=== PATIENT | female | born 1950 | race Caucasian/White ===

== ENCOUNTER 2019-03-03 15:43 | Emergency (ER) | payer MEDICARE, BC ==
[2019-03-03 15:56] VITALS: BP 146/72
--- NOTE | 2019-03-03 16:43 | EDM.PDOC ---
ED HPI GENERAL MEDICAL PROBLEM - General Chief Complaint: Lower Extremity Injury/Pain Stated Complaint: FELL-INJURED LEFT LEG Time Seen by Provider: 03/03/19 16:20 Source of Information: Reports: Patient History Limitations: Reports: No Limitations - History of Present Illness INITIAL COMMENTS - FREE TEXT/NARRATIVE: This 69 yo female patient reports to the ED with left knee through left foot pain. The patient reports she tripped over a cord at about 2:30 or 3:00 this morning. The patient reports she has continued to have pain since the time of injury. The patient reports she did not hit her head. The patient reports no dizziness before, during or after the incident. Onset Date: 03/03/19 Onset Time: 03:00 Duration: Constant Location: Reports: Lower Extremity, Left Quality: Reports: Ache, Dull Severity: Moderate Improves with: Reports: Rest Worsens with: Reports: Movement Context: Reports: Trauma (ground level fall) Associated Symptoms: Reports: No Other Symptoms Left Ankle Pain Score (Numeric/FACES): 5 - Related Data Allergies Allergy/AdvReac Type Severity Reaction Status Date / Time Penicillins Allergy Rash Verified 03/03/19 16:04 Sulfa (Sulfonamide Allergy Rash Verified 03/03/19 16:04 Antibiotics) environmental Allergy Swollen Uncoded 03/03/19 16:04 Eyes Home Meds: Home Meds Adek 3 tab PO DAILY 05/19/14 [History] Marlene 1 tab PO DAILY 05/19/14 [History] Biotin 5,000 mcg PO DAILY 05/19/14 [History] Cholecalciferol (Vitamin D3) [Vitamin D3] 5,000 unit PO DAILY 05/19/14 [History] Cyanocobalamin/Folic Acid [B-12 1,000 Mcg Sub Tablet] 1,000 mcg SL DAILY [History] Docosahexanoic Acid [DHA] 100 mg PO DAILY 05/19/14 [History] Flintstones 2 tab PO DAILY 05/19/14 [History] Multivit-Min/Iron/Folic/Ojy346 [Hair, Skin and Nails Caplet] 1 tab PO DAILY [History] buPROPion HCl [Wellbutrin Xl] 300 mg PO DAILY 05/19/14 [History] Gabapentin [Neurontin] 300 mg PO TID 30 Days cap 05/21/14 [Rx] Losartan [Cozaar] 50 mg PO DAILY #15 tablet 05/21/14 [Rx] Insulin Aspart [NovoLOG] 2 unit SQ ASDIRECTED 03/03/19 [History] Insulin Glarg,Human.Rec.Analog [Lantus] 30 unit SQ BEDTIME 03/03/19 [History] Magnesium Chloride [Mag-64] 64 mg PO DAILY 03/03/19 [History] oxyCODONE HCl/Acetaminophen [Oxycodone-Acetaminophen 5-325] 1 each PO QID [History] Past Medical History HEENT History: Reports: Impaired Vision Cardiovascular History: Reports: Hypertension Respiratory History: Reports: None Genitourinary History: Reports: UTI, Recurrent [employer] History: Reports: Musculoskeletal History: Reports: Back Pain, Chronic, Neck Pain, Chronic Neurological History: Reports: Neuropathy, Diabetic, Neuropathy, Peripheral Psychiatric History: Reports: Anxiety, Depression Endocrine/Metabolic History: Reports: Diabetes, Type II Hematologic History: Reports: None Immunologic History: Reports: None Oncologic (Cancer) History: Reports: None Dermatologic History: Reports: None - Infectious Disease History Infectious Disease History: Reports: None - Past Surgical History Head Surgeries/Procedures: Reports: None HEENT Surgical History: Reports: Tonsillectomy GI Surgical History: Reports: Appendectomy, Bariatric Procedure, Cholecystectomy , Hernia, Inguinal, Other (See Below) Female Surgical History: Reports: Section, Hysterectomy Musculoskeletal Surgical History: Reports: Other (See Below) Other Musculoskeletal Surgeries/Procedures:: broken toe on left foot, broken finger Social & Family History - Family History Family Medical History: Noncontributory - Tobacco Use Smoking Status *Q: Never Smoker - Caffeine Use Caffeine Use: Reports: Coffee - Recreational Drug Use Recreational Drug Use: No Review of Systems - Review of Systems Review Of Systems: ROS reveals no pertinent complaints other than HPI. ED EXAM, GENERAL - Physical Exam Exam: See Below Exam Limited By: No Limitations General Appearance: Alert, WD/WN, Mild Distress Eye Exam: Bilateral Eye: EOMI, Normal Inspection, PERRL Ears: Normal External Exam, Normal Canal, Hearing Grossly Normal, Normal TMs Nose: Normal Inspection, Normal Mucosa, No Blood Throat/Mouth: Normal Inspection, Normal Lips, Normal Teeth, Normal Gums, Normal Oropharynx, Normal Voice, No Airway Compromise Head: Atraumatic, Normocephalic Neck: Normal Inspection, Supple, Non-Tender, Full Range of Motion Respiratory/Chest: No Respiratory Distress, Lungs Clear, Normal Breath Sounds, No Accessory Muscle Use, Chest Non-Tender Cardiovascular: Normal Peripheral Pulses, Regular Rate, Rhythm, No Edema, No Gallop, No JVD, No Murmur, No Rub GI/Abdominal: Normal Bowel Sounds, Soft, Non-Tender, No Organomegaly, No Distention, No Abnormal Bruit, No Mass (Female) Exam: Deferred Rectal (Female) Exam: Deferred Back Exam: Normal Inspection, Full Range of Motion, NT Extremities: Leg Pain (left knee, left lateral foot) Neurological: Alert, Oriented, CN II-XII Intact, Normal Cognition, Normal Gait, Normal Reflexes, No Motor/Sensory Deficits Psychiatric: Normal Affect, Normal Mood Skin Exam: Warm, Dry, Intact, Normal Color, No Rash Lymphatic: No Adenopathy Course - Vital Signs Last Recorded V/S: Last Vital Signs Temp 35.8 C 03/03/19 15:50 Pulse 104 H 03/03/19 15:50 Resp 20 03/03/19 15:50 BP 146/72 H 03/03/19 15:50 Pulse Ox 96 03/03/19 15:50 Departure - Departure Time of Disposition: 17:15 Disposition: Home, Self-Care 01 Condition: Fair Clinical Impression: Contusion of left foot Qualifiers: Encounter type: initial encounter Qualified Code(s): S90.32XA - Contusion of left foot, initial encounter Contusion of left knee Qualifiers: Encounter type: initial encounter Qualified Code(s): S80.02XA - Contusion of left knee, initial encounter Left ankle sprain Qualifiers: Encounter type: initial encounter Involved ligament of ankle: unspecified ligament Qualified Code(s): S93.402A - Sprain of unspecified ligament of left ankle, initial encounter - Discharge Information *PRESCRIPTION DRUG MONITORING PROGRAM REVIEWED*: Not Applicable *COPY OF PRESCRIPTION DRUG MONITORING REPORT IN PATIENT SUZANNE: Not Applicable Instructions: Ankle Sprain, [id number], Contusion, [id number] Forms: ED Department Discharge Care Plan Goals: The patient was advised of the examination and x-ray results during the visit. The patient was encouraged to rest, ice and elevate her left lower extremity. If the patient has any additional symptoms or concerns, the patient should either return to the emergency department or visit her primary care facility.
--- NOTE | 2019-03-03 17:05 | CR ---
Clinical history: 69-year-old female left foot pain associated with fall. Interpretation: Osteoporosis and chronic arthritic changes. Pes cavus, hammertoe deformities and large heel spurs at the insertion plantar aponeurosis/Achilles tendon on the os calcis. *No acute fracture or dislocation left foot. No foreign bodies.
--- NOTE | 2019-03-03 17:06 | CR ---
Clinical history: 69-year-old female complaining of pain from left knee to foot associated with fall. Interpretation: No sign of long bone tib/fib fracture or left knee/ankle joint dislocation. Chronic arthritic changes medial joint compartment knee. (Apparent bimalleolar soft tissue swelling ankle on margins of the film) No foreign bodies.
== END 2019-03-03 17:19 | disposition home or self-care (01) ==
LOC: DL.ED 15:43
DX: S93.402A Sprain of unspecified ligament of left ankle, initial encounter (principal); S90.32XA Contusion of left foot, initial encounter; S80.02XA Contusion of left knee, initial encounter; I10 Essential (primary) hypertension; F41.9 Anxiety disorder, unspecified; F32.9 Major depressive disorder, single episode, unspecified; E11.42 Type 2 diabetes mellitus with diabetic polyneuropathy; Z88.0 Allergy status to penicillin; Z79.4 Long term (current) use of insulin; Z88.2 Allergy status to sulfonamides; Z79.899 Other long term (current) drug therapy; W22.8XXA Striking against or struck by other objects, initial encounter
CPT/HCPCS: 73590-LT; 73630-LT; 99283-25

== ENCOUNTER 2022-05-21 11:00 | Emergency (ER) | payer MEDICARE, BC ==
[2022-05-21 11:43] VITALS: BP 135/74; PULSE 57
[2022-05-21] MEDS ORDERED: Lidocaine 5% Oint 35.44 GM Tube TOP ONE (13:18)
== END 2022-05-21 13:40 | disposition home or self-care (01) ==
LOC: DL.ED 11:00
DX: M79.672 Pain in left foot (principal); E11.42 Type 2 diabetes mellitus with diabetic polyneuropathy; Z88.0 Allergy status to penicillin; Z88.2 Allergy status to sulfonamides; Z91.09 Other allergy status, other than to drugs and biological substances; Z79.4 Long term (current) use of insulin
CPT/HCPCS: 73630-LT; 99283; 99284; A9270-GY

== ENCOUNTER 2023-07-08 17:49 | Emergency (ER) | payer MEDICARE, BC ==
[2023-07-08 18:00] VITALS: BP 126/71; PULSE 73
[2023-07-08] MEDS: Lidocaine 1% with EPINEPHrine 1:100,000 20 ML MDV INJECT ONE (18:09)
[2023-07-08] MEDS: Acetaminophen 500 MG Tab PO ONE (18:28)
[2023-07-08] MEDS: Acetaminophen 500 MG Tab ONE (18:29)
[2023-07-08] MEDS: Bacitracin Oint 1 GM U/D Packet TOP ONE (18:55)
== END 2023-07-08 19:05 | disposition home or self-care (01) ==
LOC: DL.ED 17:49
DX: S01.01XA Laceration without foreign body of scalp, initial encounter (principal); I10 Essential (primary) hypertension; E11.42 Type 2 diabetes mellitus with diabetic polyneuropathy; Z88.0 Allergy status to penicillin; Z88.2 Allergy status to sulfonamides; Z91.09 Other allergy status, other than to drugs and biological substances; Z79.899 Other long term (current) drug therapy; Z79.4 Long term (current) use of insulin; W01.198A Fall on same level from slipping, tripping and stumbling with subsequent striking against other object, initial encounter; Y92.009 Unspecified place in unspecified non-institutional (private) residence as the place of occurrence of the external cause
CPT/HCPCS: 12001; 70450; 99282; 99283; A9270-GY; J3490

== ENCOUNTER 2025-01-12 21:19 | Emergency (ER) | payer MEDICARE, BC ==
[2025-01-12 22:27] LABS: BASOPHILS PERCENT AUTO 0.1 % (0.0-1.0); EOSINOPHILS PERCENT AUTO 1.7 % (1.0-3.0); LYMPHOCYTES PERCENT AUTO 18.8 % (20.5-50.1); MEAN CORPUSCULAR HEMOGLOBIN 30.4 pg (27.0-34.0); MEAN CORPUSCULAR HGB CONC 31.4 g/dL (33.0-35.0); MEAN CORPUSCULAR VOLUME 96.7 fL (80-100); MONOCYTES PERCENT AUTO 6.8 % (2-8); NEUTROPHILS PERCENT AUTO 72.6 % (42.2-75.2); PLATELET COUNT,PLT 181 10^3/uL (150-450); RED BLOOD CELL COUNT 3.62 10^6/uL (4.2-5.4); WHITE BLOOD CELL COUNT,WBC 9.3 10^3/uL (5.0-10.0)
[2025-01-12 22:53] LABS: B-TYPE NATRIURETIC PEPTIDE,BNP 17 pg/ml (0-100)
[2025-01-12 22:55] LABS: A/G RATIO 0.86; ALANINE AMINOTRANSFERASE,ALT 26 U/L (14-59); ALBUMIN 3.2 g/dL (3.4-5.0); ALKALINE PHOSPHATASE 97 U/L (46-116); ANION GAP 12.1 mEq/L (7-13); ASPARTATE AMNIOTRANSFERASE,AST 11 U/L (15-37); BILIRUBIN TOTAL 0.5 mg/dL (0.2-1.0); BLOOD UREA NITROGEN,BUN 29 mg/dL (7-18); C-REACTIVE PROTEIN 0.99 ng/dL (<=0.50); CARBON DIOXIDE,CO2 24 mmol/L (21-32); CHLORIDE,CL 106 mmol/L (98-107); CREATININE 1.26 mg/dL (0.55-1.02); EST CRCL DRUG DOSING (CG) 34.71 mL/min; ESTIMATED GFR 45 mL/min (>=60); GLUCOSE RANDOM 114 mg/dL (70-99); POTASSIUM,K 5.1 mmol/L (3.5-5.1); PROTEIN TOTAL,TP 6.9 g/dL (6.4-8.2); SODIUM,NA 137 mmol/L (136-145)
[2025-01-12 23:08] LABS: PROTHROMBIN TIME 10.2 SEC (9.0-12.0)
[2025-01-13] MEDS: Magnesium Sulf/Wat 2 GM/50 mL 2 GM in Premix Bag 1 BAG IV ONE (00:02)
[2025-01-13] MEDS: cefTRIAXone 1 GM Vial IVPUSH ONE (00:05)
[2025-01-13] MEDS: Furosemide 20 MG/2 ML VIAL IVPUSH ONE (00:07)
[2025-01-13 00:36] LABS: APPEARANCE,URINE CLEAR (CLEAR); BILIRUBIN,URINE NEGATIVE (NEGATIVE); COLOR,URINE YELLOW (YELLOW); GLUCOSE,URINE NEGATIVE (NEGATIVE); KETONES,URINE NEGATIVE (NEGATIVE); LEUKOCYTE ESTERASE,URINE SMALL (NEGATIVE); NITRITE,URINE NEGATIVE (NEGATIVE); OCCULT BLOOD,URINE NEGATIVE (NEGATIVE); PH,URINE 5.5 (5.0-9.0); PROTEIN,URINE NEGATIVE (NEGATIVE); UROBILINOGEN,URINE 0.2 mg/dL (0.2-1.0)
[2025-01-13 00:38] VITALS: BP 130/61; PULSE 64
[2025-01-13] MEDS: oxyCODONE 5 MG Tab PO ONE (00:41)
[2025-01-13 00:56] LABS: BACTERIA,URINE FEW /HPF (0-FEW/HPF); EPITHELIAL CELLS,URINE FEW /HPF (NOT SEEN); MUCUS,URINE FEW /LPF (NOT SEEN); RBC,URINE 0-5 /HPF (0-5)
== END 2025-01-13 01:28 | disposition home or self-care (01) ==
LOC: MERGE 21:19 → DL.ED 21:19
DX: L03.115 Cellulitis of right lower limb (principal); L03.116 Cellulitis of left lower limb; E83.42 Hypomagnesemia; R60.9 Edema, unspecified; Z88.0 Allergy status to penicillin; Z88.2 Allergy status to sulfonamides
CPT/HCPCS: 36415; 71045; 80053; 81001; 83735; 83880; 84484; 85025; 85379; 85610; 86140; 87086; 93970; 96365; 96375; 99284; A9270; J0696; J1940; J3475

== ENCOUNTER 2025-07-01 11:19 | Emergency (ER) | payer MEDICARE, BC ==
[2025-07-01] MEDS: Acetaminophen/HYDROcodone 325-5 MG Tab PO ONE (12:14)
[2025-07-01 12:32] VITALS: BP 145/100; PULSE 75
== END 2025-07-01 13:40 | disposition home or self-care (01) ==
LOC: DL.ED 11:19
DX: S83.91XA Sprain of unspecified site of right knee, initial encounter (principal); I10 Essential (primary) hypertension; E11.40 Type 2 diabetes mellitus with diabetic neuropathy, unspecified; Z88.0 Allergy status to penicillin; Z88.2 Allergy status to sulfonamides; Z91.09 Other allergy status, other than to drugs and biological substances; Z79.899 Other long term (current) drug therapy; Z79.4 Long term (current) use of insulin; X58.XXXA Exposure to other specified factors, initial encounter; Y93.89 Activity, other specified
CPT/HCPCS: 73562-RT; 99283; A9270-GY

== ENCOUNTER 2025-08-26 20:29 | Emergency (ER) | payer MEDICARE, BC ==
[2025-08-26 20:40] VITALS: BP 132/62; PULSE 85
[2025-08-26 21:18] LABS: BASOPHILS PERCENT AUTO 0.2 % (0.0-1.0); EOSINOPHILS PERCENT AUTO 2.5 % (1.0-3.0); LYMPHOCYTES PERCENT AUTO 23.1 % (20.5-50.1); MONOCYTES PERCENT AUTO 8.7 % (2-8); NEUTROPHILS PERCENT AUTO 65.5 % (42.2-75.2); PLATELET COUNT,PLT 190 10^3/uL (150-450); RED BLOOD CELL COUNT 3.69 10^6/uL (4.2-5.4); WHITE BLOOD CELL COUNT,WBC 9.5 10^3/uL (5.0-10.0)
[2025-08-26 21:32] LABS: A/G RATIO 0.64; ALANINE AMINOTRANSFERASE,ALT 22.0 U/L (14-59); ASPARTATE AMNIOTRANSFERASE,AST 17.0 U/L (15-37); BILIRUBIN TOTAL 0.5 mg/dL (0.2-1.0); BLOOD UREA NITROGEN,BUN 23.0 mg/dL (7-18); CARBON DIOXIDE,CO2 25.0 mmol/L (21-32); CHLORIDE,CL 104.0 mmol/L (98-107); CREATININE 1.29 mg/dL (0.55-1.02); EST CRCL DRUG DOSING (CG) 37.43 mL/min; ESTIMATED GFR 43.0 mL/min (>=60); GLUCOSE RANDOM 112.0 mg/dL (70-99); POTASSIUM,K 4.4 mmol/L (3.5-5.1); PROTEIN TOTAL,TP 7.4 g/dL (6.4-8.2); SODIUM,NA 136.0 mmol/L (136-145)
[2025-08-26 21:35] LABS: APPEARANCE,URINE CLOUDY (CLEAR); GLUCOSE,URINE NEGATIVE (NEGATIVE); OCCULT BLOOD,URINE TRACE-INTACT (NEGATIVE)
[2025-08-26 21:46] LABS: SQUAMOUS EPITHELIAL CELLS,UR MODERATE /HPF (NOT SEEN)
[2025-08-26] MEDS: Magnesium Sulfat/D5W 1GM/100ML 1 GM in Premix Bag 1 BAG IV ONE (22:17)
[2025-08-26] MEDS: Nitrofurantoin Monohydrate/Macrocrystalline 100 MG Cap PO ONE (22:27)
== END 2025-08-26 23:13 | disposition home or self-care (01) ==
LOC: DL.ED 20:29
DX: K62.5 Hemorrhage of anus and rectum (principal); I10 Essential (primary) hypertension; E11.42 Type 2 diabetes mellitus with diabetic polyneuropathy; Z90.49 Acquired absence of other specified parts of digestive tract; Z79.899 Other long term (current) drug therapy; Z79.4 Long term (current) use of insulin; Z88.0 Allergy status to penicillin; Z88.2 Allergy status to sulfonamides; Z91.09 Other allergy status, other than to drugs and biological substances
CPT/HCPCS: 36415; 80053; 81001; 82272; 83735; 85025; 87086; 87088; 87186; 96365; 99283; A9270; C1758; J3475